=== PATIENT | male | born 1945 | race Caucasian/White ===

== ENCOUNTER 2020-09-13 14:12 | Inpatient (IN) | payer MEDICARE ==
[2020-09-13 14:36] LABS: #Monocytes 0.5 10x3/uL (0.0-1.1); #Neutrophils 9.8 10x3/uL (1.5-8.4); %Basophils 0.4 % (0.0-2.0); %Lymphocytes 2.9 % (18.0-47.0); Hemoglobin 14.6 g/dL (13.5-17.5); Mean Corpuscular HGB CONC 31.7 g/dL (32.0-36.0); Mean Corpuscular Hemoglobin 29.8 pg (27.0-33.0); Mean Corpuscular Volume 94.1 fl (81.2-95.1); Mean Platelet Volume 11.4 fl (7.4-10.4); Platelet Count 126 10x3/uL (150-450); RBC Distribution Width 14.5 % (11.5-14.5); White Blood Cell (WBC) Count 10.7 10x3/uL (3.5-10.5)
[2020-09-13] MEDS ORDERED: Acetaminophen 325 MG TAB ONE (14:39)
[2020-09-13 14:42] LABS: Bilirubin Neg (Negative); Blood, Urine 10 (Negative); Clarity Cloudy (Clear); Glucose, Urine (Dipstick) Normal (Negative); Ketone, Urine 5 mg/dL (Negative); Leukocyte Negative (Negative); Nitrite Negative (Negative); Protein, Urine (Dipstick) 30 mg/dl (Neg-Trace); Specific Gravity, Urine 1.015 (1.002-1.036); Urobilinogen Normal mg/dL (Less than 2)
[2020-09-13 14:50] LABS: WBC/HPF 0-3 HPF (0-3)
[2020-09-13 14:51] LABS: Amphetamine Not Detected (NotDetected); Bacteria/HPF 1+ HPF (None Seen); Barbiturates Screen Detected (NotDetected); Benzodiazepine Screen Not Detected (NotDetected); Cocaine Metabolite Screen Not Detected (NotDetected); Methadone Not Detected (NotDetected); Methamphetamine Not Detected (NotDetected); Opiate Screen Not Detected (NotDetected); Oxycodone Screen Not Detected (NotDetected); Phencyclidine (PCP) Not Detected (NotDetected); Squamous Epithelial 0-3 HPF (0-3); THC/Cannabinoid Screen Not Detected (NotDetected); Tricyclic Screen Not Detected (NotDetected)
[2020-09-13 14:52] LABS: Acetaminophen Less than 6.0 mcg/mL (10.0-30.0); Alcohol Less than 10 mg/dL (Less than 10); Salicylate Less than 8.0 mg/dL (15.0-30.0)
[2020-09-13 14:53] LABS: ALT (SGPT) 20 U/L (8-55); AST (SGOT) 78 U/L (5-34); Albumin 4.3 g/dL (3.4-4.8); Alkaline Phosphatase 151 U/L (40-110); Anion Gap 21 mmol/L (10-20); BUN (Urea Nitrogen) 25 mg/dL (8.4-25.7); Bilirubin, Total 1.5 mg/dL (0.2-1.2); Calc. Creatinine Clearance 0 mL/min (70-130); Calcium 9.2 mg/dL (7.8-10.44); Carbon Dioxide 19 mmol/L (23-31); Chloride 101 mmol/L (98-107); Globulin 3.1 g/dL (2.4-3.5); Glucose 165 mg/dL (83-110); Potassium 4.8 mmol/L (3.5-5.1); Protein, Total 7.4 g/dL (5.8-8.1); Sodium 136 mmol/L (136-145)
[2020-09-13] MEDS ORDERED: Cefepime 2 GM VIAL ONE (15:05)
[2020-09-13] MEDS ORDERED: Acetaminophen 325 MG TAB PO PRN (16:49)
[2020-09-13] MEDS ORDERED: Acetaminophen 650 MG Suppository PR PRN (16:49)
[2020-09-13] MEDS ORDERED: Ventolin HFA Inhaler 60 PUFF INHALER INH PRN (16:50)
[2020-09-13] MEDS ORDERED: diphenhydrAMINE 10 MG in Sodium Chloride 0.9% 50 ML IVPB SCH (17:00)
[2020-09-13] MEDS ORDERED: Lorazepam 2 MG/ML VIAL SLOW IVP PRN (17:04)
[2020-09-13] MEDS ORDERED: Albuterol Sulfate 1.25 MG/3 ML NEB NEB PRN (17:08)
[2020-09-13 17:25] LABS: SARS-CoV-2 NAA Rapid Test DETECTED (NotDetected)
[2020-09-13 17:27] LABS: Lactic Acid 1.8 mmol/L (0.5-2.2)
[2020-09-13 20:33] LABS: Lactic Acid 2.1 mmol/L (0.5-2.2)
[2020-09-13] MEDS ORDERED: Vancomycin 1.5 GRAM/300 ML BAG 1.5 GM in Premix Bag 1 BAG IVPB SCH (21:00)
[2020-09-13 21:59] VITALS: BMI 33.7
[2020-09-13] MEDS ORDERED: Carvedilol 12.5 MG TAB PO SCH (22:15)
[2020-09-13] MEDS ORDERED: Lisinopril 5 MG TAB PO SCH (22:15)
[2020-09-13] MEDS: Piperacillin/Tazobactam 3.375 GM in Sodium Chloride 0.9% 100 ML IVPB SCH (22:30)
[2020-09-13] MEDS ORDERED: Carbidopa/Levodopa 25-100 mg Tablet PO SCH (22:30)
[2020-09-13] MEDS ORDERED: Primidone 50 MG TAB PO SCH (22:30)
[2020-09-14 05:43] LABS: ALT (SGPT) 12 U/L (8-55); AST (SGOT) 63 U/L (5-34); Albumin 3.2 g/dL (3.4-4.8); Alkaline Phosphatase 105 U/L (40-110); Anion Gap 13 mmol/L (10-20); BUN (Urea Nitrogen) 23 mg/dL (8.4-25.7); Bilirubin, Total 0.9 mg/dL (0.2-1.2); Calc. Creatinine Clearance 75 mL/min (70-130); Calcium 8.1 mg/dL (7.8-10.44); Carbon Dioxide 23 mmol/L (23-31); Chloride 104 mmol/L (98-107); Globulin 2.6 g/dL (2.4-3.5); Glucose 133 mg/dL (83-110); Protein, Total 5.8 g/dL (5.8-8.1); Sodium 136 mmol/L (136-145)
[2020-09-14] MEDS: Piperacillin/Tazobactam 3.375 GM in Sodium Chloride 0.9% 100 ML IVPB SCH ×3 (07:19→22:20)
[2020-09-14] MEDS: Levothyroxine Sodium 75 MCG TAB PO SCH (07:19)
[2020-09-14] MEDS: Mometasone/Formoterol 60 PUFF AER INH SCH ×2 (07:45→19:35)
[2020-09-14] MEDS: Carbidopa/Levodopa 25-100 mg Tablet PO SCH ×3 (08:29→22:20)
[2020-09-14] MEDS: Lisinopril 5 MG TAB PO SCH ×2 (08:29→22:20)
[2020-09-14] MEDS: Rosuvastatin 20 MG TAB PO SCH (08:30)
[2020-09-14] MEDS: Carvedilol 12.5 MG TAB PO SCH ×2 (08:30→22:20)
[2020-09-14] MEDS: Furosemide 20 MG TAB PO SCH (08:33)
[2020-09-14] MEDS ORDERED: FLU VACC QS2020-21(65YR UP)/PF 240 MCG/0.7 ML SYRINGE IM ONE (09:00)
[2020-09-14] MEDS ORDERED: Spironolactone 25 MG TAB PO PRN (09:00)
[2020-09-14] MEDS: Primidone 50 MG TAB PO SCH ×2 (09:00→22:20)
[2020-09-14] MEDS: Vancomycin 1.5 GRAM/300 ML BAG 1.5 GM in Premix Bag 1 BAG IVPB SCH ×2 (16:20→16:30)
[2020-09-14] MEDS ORDERED: Dextrose 5% in Water 1,000 ML IV PRN (19:44)
[2020-09-14] MEDS ORDERED: Dextrose 50% Abboject 50 ML SYRINGE SLOW IVP PRN (19:44)
[2020-09-14] MEDS ORDERED: HumaLOG 300 UNITS/3 ML VIAL SC PRN (19:44)
[2020-09-15 05:57] LABS: Anion Gap 14 mmol/L (10-20); BUN (Urea Nitrogen) 28 mg/dL (8.4-25.7); Calc. Creatinine Clearance 76 mL/min (70-130); Calcium 8.1 mg/dL (7.8-10.44); Carbon Dioxide 18 mmol/L (23-31); Chloride 105 mmol/L (98-107); Glucose 151 mg/dL (83-110); Potassium 4.3 mmol/L (3.5-5.1); Sodium 133 mmol/L (136-145)
[2020-09-15 05:59] LABS: #Monocytes 0.6 10x3/uL (0.0-1.1); #Neutrophils 4.3 10x3/uL (1.5-8.4); %Basophils 0.4 % (0.0-2.0); %Lymphocytes 12.1 % (18.0-47.0); %Monocytes 10.7 % (0.0-10.0); %Neutrophils 76.1 % (40.0-75.0); Hemoglobin 13.2 g/dL (13.5-17.5); Mean Corpuscular HGB CONC 32.4 g/dL (32.0-36.0); Mean Corpuscular Hemoglobin 29.6 pg (27.0-33.0); Mean Corpuscular Volume 91.5 fl (81.2-95.1); Mean Platelet Volume 12.4 fl (7.4-10.4); Platelet Count 80 10x3/uL (150-450); RBC Distribution Width 14.6 % (11.5-14.5); Red Blood Cell (RBC) Count 4.46 10x6/uL (4.32-5.72); White Blood Cell (WBC) Count 5.6 10x3/uL (3.5-10.5)
[2020-09-15] MEDS: Levothyroxine Sodium 75 MCG TAB PO SCH (06:07)
[2020-09-15] MEDS: Piperacillin/Tazobactam 3.375 GM in Sodium Chloride 0.9% 100 ML IVPB SCH (06:08)
[2020-09-15] MEDS: Mometasone/Formoterol 60 PUFF AER INH SCH ×2 (07:18→19:21)
[2020-09-15] MEDS: Rosuvastatin 20 MG TAB PO SCH (09:00)
[2020-09-15] MEDS: Primidone 50 MG TAB PO SCH ×2 (09:00→20:23)
[2020-09-15] MEDS: Carvedilol 12.5 MG TAB PO SCH ×2 (09:00→20:45)
[2020-09-15] MEDS: Clopidogrel Bisulfate 75 MG TAB PO SCH (09:00)
[2020-09-15] MEDS: Lisinopril 5 MG TAB PO SCH ×2 (09:00→20:45)
[2020-09-15] MEDS: Aspirin 81 mg Enteric Coated Tablet PO SCH (09:00)
[2020-09-15] MEDS: Carbidopa/Levodopa 25-100 mg Tablet PO SCH ×3 (09:00→20:23)
[2020-09-15] MEDS: Vancomycin 1.5 GRAM/300 ML BAG 1.5 GM in Premix Bag 1 BAG IVPB SCH (16:00)
[2020-09-15 16:20] LABS: Vancomycin, Trough 4.1 ug/mL
[2020-09-16] MEDS: Vancomycin 1.5 GRAM/300 ML BAG 1.5 GM in Premix Bag 1 BAG IVPB SCH ×2 (04:31→16:00)
[2020-09-16] MEDS: Levothyroxine Sodium 75 MCG TAB PO SCH (05:52)
[2020-09-16] MEDS: Mometasone/Formoterol 60 PUFF AER INH SCH ×2 (07:33→18:00)
[2020-09-16 08:46] LABS: #Eosinphils 0.2 10x3/uL (0.0-0.5); #Monocytes 0.4 10x3/uL (0.0-1.1); #Neutrophils 3.1 10x3/uL (1.5-8.4); %Basophils 0.7 % (0.0-2.0); %Lymphocytes 17.4 % (18.0-47.0); %Monocytes 9.6 % (0.0-10.0); %Neutrophils 68.1 % (40.0-75.0); Hemoglobin 12.7 g/dL (13.5-17.5); Mean Corpuscular HGB CONC 31.8 g/dL (32.0-36.0); Mean Corpuscular Hemoglobin 29.6 pg (27.0-33.0); Mean Corpuscular Volume 93.2 fl (81.2-95.1); Mean Platelet Volume 11.9 fl (7.4-10.4); Platelet Count 91 10x3/uL (150-450); RBC Distribution Width 14.6 % (11.5-14.5); Red Blood Cell (RBC) Count 4.29 10x6/uL (4.32-5.72); White Blood Cell (WBC) Count 4.5 10x3/uL (3.5-10.5)
[2020-09-16] MEDS: Lisinopril 5 MG TAB PO SCH ×2 (09:00→21:12)
[2020-09-16] MEDS: Carbidopa/Levodopa 25-100 mg Tablet PO SCH ×3 (09:00→20:30)
[2020-09-16] MEDS: Rosuvastatin 20 MG TAB PO SCH (09:00)
[2020-09-16] MEDS: Primidone 50 MG TAB PO SCH ×2 (09:00→20:30)
[2020-09-16] MEDS: Aspirin 81 mg Enteric Coated Tablet PO SCH (09:00)
[2020-09-16] MEDS: Clopidogrel Bisulfate 75 MG TAB PO SCH (09:00)
[2020-09-16 16:03] LABS: Vancomycin, Trough 16.4 ug/mL
[2020-09-17] MEDS: Levothyroxine Sodium 75 MCG TAB PO SCH (05:08)
[2020-09-17] MEDS: Vancomycin 1.5 GRAM/300 ML BAG 1.5 GM in Premix Bag 1 BAG IVPB SCH (05:08)
[2020-09-17] MEDS: Mometasone/Formoterol 60 PUFF AER INH SCH (07:55)
[2020-09-17] MEDS: Clopidogrel Bisulfate 75 MG TAB PO SCH (08:27)
[2020-09-17] MEDS: Rosuvastatin 20 MG TAB PO SCH (08:28)
[2020-09-17] MEDS: Aspirin 81 mg Enteric Coated Tablet PO SCH (08:31)
[2020-09-17] MEDS: Lisinopril 5 MG TAB PO SCH (08:31)
[2020-09-17] MEDS: Carbidopa/Levodopa 25-100 mg Tablet PO SCH ×2 (08:32→15:55)
[2020-09-17] MEDS: Furosemide 20 MG TAB PO SCH (08:49)
[2020-09-17] MEDS: Primidone 50 MG TAB PO SCH (08:50)
[2020-09-17 12:48] VITALS: BP 126/81; TEMP 97.9
[2020-09-17 16:13] LABS: Vancomycin, Trough 13.2 ug/mL
== END 2020-09-17 16:48 | disposition home or self-care (01) | DRG 871 ==
LOC: CSHERS 14:12 → SUATTDRO 14:12 → CSHTELE 21:48
PROVIDERS: ADMIT Internal Medicine; ATTEND Internal Medicine
DX: A41.9 Sepsis, unspecified organism (principal); I50.21 Acute systolic (congestive) heart failure; G93.41 Metabolic encephalopathy; R65.20 Severe sepsis without septic shock; I25.10 Atherosclerotic heart disease of native coronary artery without angina pectoris; E78.5 Hyperlipidemia, unspecified; Z95.810 Presence of automatic (implantable) cardiac defibrillator; Z79.82 Long term (current) use of aspirin; Z79.890 Hormone replacement therapy; Z79.51 Long term (current) use of inhaled steroids; Z79.899 Other long term (current) drug therapy; Z79.01 Long term (current) use of anticoagulants; I11.0 Hypertensive heart disease with heart failure; F32.9 Major depressive disorder, single episode, unspecified; Z95.1 Presence of aortocoronary bypass graft; Z95.5 Presence of coronary angioplasty implant and graft; G20 Parkinson's disease; E03.9 Hypothyroidism, unspecified; Z86.16 Personal history of COVID-19; D69.6 Thrombocytopenia, unspecified; I95.9 Hypotension, unspecified
CPT/HCPCS: 0240U; 36415; 51701; 70450; 71045; 80048; 80053; 80202; 80306; 80307; 81003; 81015; 82140; 82248; 82550; 83605; 84145; 84443; 84484; 85025; 87040; 87086; 87149; 93005; 94664; 94760; 96365; 96366; 96367; J0692; J2543; J3370; J3490